=== PATIENT | male | born 1945 | race Caucasian/White ===

== ENCOUNTER 2024-09-30 09:30 | Outpatient (RCR) | payer MEDICARE, OTHER, SELFPAY ==
--- NOTE | 2024-09-29 11:48 | ONC.NURNOTE ---
Dx: Anemia, NHL
[2024-09-30] VITALS (7 sets, daily range): BP systolic 101–129; BP diastolic 63–78; PULSE 63–95; RESP 15–18; TEMP 36.7–37.2; O2SAT 95–97
[2024-09-30] MEDS: 0.9 % SODIUM CHLORIDE 500 ML 250 ML IV (11:05)
--- NOTE | 2024-09-30 12:24 | ONC.NURNOTE ---
trena well. LS clear before and after. Heart reg before. sl irr after no murmers. pt states has A Fib. asymptomatic. vs wnl. waiting 1 hr before leaving.
[2024-09-30] MEDS: SODIUM CHLORIDE 0.9 % (FLUSH) 10 ML SYRINGE IVF (12:31)
== END 2025-03-28 23:59 | disposition home or self-care (01) ==
LOC: CCIC 09:30
PROVIDERS: PCP Registered Nurse; Visit Provider Clinical Nurse Specialist
DX: D64.9 Anemia, unspecified (principal)
CPT/HCPCS: 36415; 36430; 36591; 86850; 86900; 86901; 86922; J7030; P9016